=== PATIENT | male | born 1985 | race Caucasian/White ===

== ENCOUNTER 2023-01-16 14:33 | Emergency (ER) | payer MEDICARE, MEDICAID ==
[2023-01-16] MEDS ORDERED: HYDROmorphone 1 MG/ML Syringe IVPUSH ONE ×3 (14:43→17:54)
[2023-01-16] MEDS ORDERED: Sodium Chloride 0.9% 10 ML Syringe FLUSH PRN (14:43)
[2023-01-16] MEDS ORDERED: Sodium Chloride 0.9% 1,000 ML IV ONE ×2 (14:43→15:17)
[2023-01-16] MEDS ORDERED: Ondansetron 4 MG/2 ML SDV IV ONE ×2 (14:43→15:33)
[2023-01-16 15:30] LABS: ANION GAP 11.7 mEq/L (7-13)
[2023-01-16] MEDS ORDERED: Sodium Chloride 0.9% 500 ML IV SCH (15:30)
[2023-01-16] MEDS ORDERED: Iopamidol 612 MG/ML 100 ML Bottle IVPUSH ONE (15:33)
[2023-01-16] MEDS ORDERED: Piperacillin/Tazobactam 4.5 GM in Sodium Chloride 0.9% 100 ML IV ONE (16:28)
== END 2023-01-16 18:05 ==
LOC: DL.ED 14:33
DX: K35.33 Acute appendicitis with perforation, localized peritonitis, and gangrene, with abscess (principal)
CPT/HCPCS: 36415; 74177; 80053; 81001; 82150; 83605; 83690; 85025; 87040; 96361; 96365; 96375; 96376; 99285; J1170; J2405; J2543; J3490; J7030; J7040; Q9967